=== PATIENT | male | born 2000 | race Caucasian/White ===

== ENCOUNTER 2023-05-30 20:48 | Emergency (ER) | payer BC, SELFPAY ==
[2023-05-30 20:57] VITALS: BP 138/82; PULSE 82; RESP 16; TEMP 36.7; O2SAT 99
[2023-05-30 22:12] VITALS: PULSE 76; RESP 23; O2SAT 100
[2023-05-30 22:15] VITALS: PULSE 81; RESP 21; O2SAT 100
[2023-05-30 22:30] VITALS: PULSE 79; RESP 18; O2SAT 100
[2023-05-30 22:45] VITALS: PULSE 80; RESP 27; O2SAT 98
--- NOTE | 2023-05-30 22:58 | ED.SKABFB ---
HPI - Skin/Abscess/Foreign Bdy General Chief complaint: Skin/Abscess/Foreign Body Stated complaint: staph infection w/ streaking Time Seen by Provider: 05/30/23 22:43 Source: patient Mode of arrival: ambulatory Limitations: no limitations History of Present Illness HPI narrative: 22-year-old male presents to the ER and night with complaints of a rash that started today. Patient has been on multiple rounds of antibiotics recently for staph infection. States he was on Bactrim a couple weeks ago then repeated on Bactrim now on clindamycin. For the last couple days has been taking Bactrim and clindamycin and noted rash today. Does endorse that the rash is pruritic. Denies any shortness of breath, wheezing to the chest, or any other concerns. Related Data Allergies Allergy/AdvReac Type Severity Reaction Status Date / Time No Known Allergies Allergy Verified 05/30/23 22:29 Review of Systems Review of Systems: All systems reviewed & are unremarkable except as noted in HPI and below Exam Const: General: cooperative, healthy appearing, comfortable, no acute distress and well developed Orientation/consciousness: patient oriented x3 HENMT: Head: normal to inspection Eyes: General: appearance normal, both eyes and all related structures Resp: Effort & Inspection: normal respiratory effort and able to speak in complete sentences Auscultation: clear to auscultation bilaterally Cardio: Rate: regular rate Rhythm: regular rhythm Heart sounds: S1 normal heart sound present and S2 normal heart sound present Skin: Other: Macular papular rash noted to bilateral knees, bilateral upper legs, right upper arm, and chest. Neuro: General: patient oriented x3 Course Vital Signs Vital signs: Vital Signs Temperature 98.1 F 05/30/23 20:57 Pulse Rate 82 05/30/23 20:57 Respiratory Rate 16 05/30/23 20:57 Blood Pressure 138/82 05/30/23 20:57 Pulse Oximetry 99 05/30/23 20:57 Oxygen Delivery Room Air 05/30/23 20:57 Temperature 98.1 F 05/30/23 20:57 Pulse Rate 79 05/30/23 23:00 Respiratory Rate 23 H 05/30/23 23:00 Blood Pressure 138/82 05/30/23 20:57 Pulse Oximetry 98 05/30/23 23:00 Oxygen Delivery Room Air 05/30/23 20:57 MDM - Skin/Abscess/Foreign Bdy MDM Narrative Medical decision making narrative: 22-year-old male HPI as noted. Differentials as below. Will stop clindamycin and Bactrim. Start Doxy to continue on antibiotics for staph infection, tapering dose of steroids for rash. Follow-up with primary care or dermatology if no improvement Differential Diagnosis Differential diagnosis: Likely abscess of skin or subcutaneous tissue, viral exanthem, allergic reaction to drug and cellulitis Medical Records Attestation: I reviewed the patient's medical records. Discharge Plan Discharge Clinical Impression: Allergic reaction to drug, Cellulitis Patient Disposition: Home, Self-Care Condition: Stable Instructions: Antibiotic Form, Cellulitis (ED) Additional Instructions: Stop all previous antibiotics. Medications as prescribed. Follow up with primary for re evaluation and if cellulitis does not clear please see dermatology Prescriptions: New doxycycline hyclate 100 mg capsule 100 mg PO BID Qty: 14 0RF prednisone 20 mg tablet 20 mg PO DAILY Qty: 12 0RF Rx Instructions: 2 tabs daily for 4 days then 1 tab daily for 4 days then stop Follow-up/Referrals: Radha Richardson MD [Primary Care Provider] - 3 Days Time of Disposition: 23:01
[2023-05-30 23:00] VITALS: PULSE 79; RESP 23; O2SAT 98
[2023-05-30] MEDS: DOXYCYCLINE HYCLATE 100 MG TABLET PO (23:07)
[2023-05-30] MEDS: predniSONE 20 MG TABLET 40 MG PO (23:07)
== END 2023-05-30 23:12 | disposition home or self-care (01) ==
LOC: ANHED 23:06
PROVIDERS: Emergency Provider Nurse Practitioner Family; PCP Pediatrics
DX: L03.113 Cellulitis of right upper limb (principal); T36.8X5A Adverse effect of other systemic antibiotics, initial encounter
CPT/HCPCS: 99283; A9270; J7512